=== PATIENT | male | born 1980 | race Caucasian/White ===

== ENCOUNTER → 2023-06-14 | Outpatient (CLI) | payer SELFPAY ==
[~2023-06-14] MED LIST: CLIN300C3 PO; NAPR-243 PO; PEN V K PO; TRM50T PO
--- NOTE | 2023-06-14 14:52 | Diagnostic Imaging Report ---
INDICATION: History of pneumonia. COMPARISON: None FINDINGS: Frontal and lateral radiographic views of the chest were obtained and show marked enlargement of the cardiac silhouette, asymmetrically on the right. There is no prior available for comparison. Pulmonary vasculature may be slightly prominent as well. Lungs show mild bibasilar effusions, left slightly greater than right. Patchy bibasilar airspace opacities are also noted. There is no pneumothorax. Osseous structures show no gross acute abnormalities. IMPRESSION: 1. Moderate enlargement of the cardiac silhouette. Asymmetric prominence of the right heart border raises concern for underlying mediastinal or hilar mass. Pericardial effusion is also a consideration. Correlation with postcontrast CT of the chest is advised. 2. Bibasilar effusions with patchy bibasilar atelectasis and/or infiltrate, left slightly greater than right. Dictated by: Dictated on workstation # [id number]
== END ==
LOC: RAD 10:27
PROVIDERS: ATTEND Internal Medicine
DX: J98.11 Atelectasis (principal)
CPT/HCPCS: 71046